=== PATIENT | female | born 1940 | race Caucasian/White ===

== ENCOUNTER 2024-08-12 11:20 | Emergency (ER) | payer MEDICARE, OTHER | END 2024-08-12 12:58 | disposition home or self-care (01) | LOC: CSHERS 11:20 | DX: S42.002A Fracture of unspecified part of left clavicle, initial encounter for closed fracture (principal); I10 Essential (primary) hypertension; E78.5 Hyperlipidemia, unspecified; X58.XXXA Exposure to other specified factors, initial encounter | CPT/HCPCS: 70450 ==